=== PATIENT | female | born 1980 | race Caucasian/White ===

== ENCOUNTER → 2016-09-06 | Outpatient (CLI) | payer OTHER ==
--- NOTE | 2016-09-06 12:01 | RAD ---
Lumbar spine, 3 views, 09/06/2016: History: Chronic low back pain The lumbar vertebral heights are well-maintained. The intervertebral disc spaces are well preserved. There are mild scattered marginal spurs. The paraspinous soft tissues are unremarkable. IMPRESSION: 1. Mild marginal spurring. 2. No acute abnormality is detected.
== END | disposition home or self-care (01) ==
LOC: DXRADRC 10:47
PROVIDERS: ATTEND Family Medicine
DX: M54.5 Low back pain (principal); G89.29 Other chronic pain
CPT/HCPCS: 72100

== ENCOUNTER 2017-04-11 00:56 | Emergency (ER) | payer OTHER ==
[~2017-04-11] VITALS: Ht 157.5 cm; Wt 72.6 kg
[2017-04-11] MEDS ORDERED: PROMETHAZINE 12.5 MG in IV NORMAL SALINE 50ML 50 ML IV ONE (01:30)
[2017-04-11] MEDS ORDERED: KETOROLAC 30 MG/ML VIAL. IV ONE (01:30)
[2017-04-11] MEDS ORDERED: ONDANSETRON PF 4 MG/2 ML VIAL. IV ONE (01:30)
[2017-04-11] MEDS ORDERED: IV NORMAL SALINE 1,000ML 1,000 ML IV SCH (01:30)
[2017-04-11 01:45] LABS: BASO # 0.1 x10^3/uL (0.0-0.2); BASO % 1 % (0-3); EOS # 0.4 x10^3/uL (0.0-0.7); EOS % 4 % (0-3); HEMATOCRIT 38.7 % (36.0-47.0); HEMOGLOBIN 13.2 g/dL (12.0-15.5); LYMPH # 3.3 x10^3/uL (1.0-4.8); LYMPH % 33 % (24-48); MEAN CORPUSCULAR HEMOGLOBIN 29 pg (25-35); MEAN CORPUSCULAR HGB CONC 34 g/dL (31-37); MEAN CORPUSCULAR VOLUME 84 fL (79-100); MONO # 0.8 x10^3/uL (0.0-1.1); MONO % 8 % (0-9); NEUT # 5.7 x10^3uL (1.8-7.7); NEUT % 56 % (31-73); PLATELET COUNT 407 x10^3/uL (140-400); RED BLOOD COUNT 4.63 x10^6/uL (3.50-5.40); RED CELL DISTRIBUTION WIDTH 16.6 % (11.5-14.5); WHITE BLOOD COUNT 10.2 x10^3/uL (4.0-11.0)
[2017-04-11 01:50] LABS: BACTERIA,URINE FEW /HPF (0-FEW); BILIRUBIN,URINE NEG (NEG); CLARITY,URINE CLOUDY; COLOR,URINE YELLOW; GLUCOSE,URINE NEG (NEG); NITRITE,URINE NEG (NEG); RBC,URINE OCC /HPF (0-2); SQUAMOUS EPITHELIAL CELL,UR OCC /LPF; UROBILINOGEN,URINE 0.2 mg/dL (0.2 mg/dL); WBC,URINE OCC /HPF (0-4)
[2017-04-11] MEDS ORDERED: PROMETHAZINE 25 MG/ML VIAL IV ONE (01:50)
[2017-04-11] MEDS ORDERED: IV NORMAL SALINE 50ML 50 ML ONE (01:50)
[2017-04-11 01:51] LABS: AMORPHOUS SEDIMENT,UR PRESENT /HPF; BARBITURATES NEG (NEG); BENZODIAZEPINES POS (NEG); CANNABINOIDS NEG (NEG); COCAINE NEG (NEG); METHADONE NEG (NEG); OPIATES NEG (NEG); PHENCYCLIDINE NEG (NEG)
[2017-04-11 01:51] LABS: ALBUMIN 3.6 g/dL (3.4-5.0); ALBUMIN/GLOBULIN RATIO 0.9 (1.0-1.7); CALCIUM 8.9 mg/dL (8.5-10.1); CREATININE 0.7 mg/dL (0.6-1.0); GFR 94.7; POTASSIUM 3.6 mmol/L (3.5-5.1); TOTAL BILIRUBIN 0.1 mg/dL (0.2-1.0); TOTAL PROTEIN 7.4 g/dL (6.4-8.2)
[2017-04-11 01:54] LABS: AMPHETAMINE/METHAMPHETAMINE NEG (NEG)
--- NOTE | 2017-04-11 02:36 | RAD ---
INDICATION: [id number] Severe left sided abdomen pain with nausea and loss of appetite today. COMPARISON: None. TECHNIQUE: Axial CT images were obtained through the abdomen and pelvis without intravenous contrast. Limited assessment of solid organ structures and vasculature secondary to lack of intravenous contrast. One or more of the following individualized dose reduction techniques were utilized for this examination: 1. Automated exposure control; 2. Adjustment of the mA and/or kV according to patient size; 3. Use of iterative reconstruction technique. FINDINGS: Chest Base: Partially imaged without gross abnormality. Vessels: No abdominal aortic aneurysm. Liver/Biliary: No intrahepatic biliary duct dilation. Pancreas: No peripancreatic edema. Spleen: Normal. Kidneys/Adrenal: There couple suspected 1 mm nonobstructive right renal stones. Bladder: Minimal urine within. GI: No free air. No bowel dilation to suggest obstruction. Appendix not well seen. Degenerative changes of spine. IMPRESSION: 1. There are couple suspected tiny nonobstructive right renal stones without hydronephrosis or definite radiopaque obstructive ureter stone. Electronically signed by: Fernando Blanco MD (04/11/2017 2:33 AM) [facility]
[2017-04-11] MEDS ORDERED: oxyCODONE/APAP 10/325 1 TAB TABLET PO ONE (03:00)
[2017-04-11] MEDS ORDERED: ONDANSETRON ODT 4 MG TAB.RAPDIS PO ONE (03:00)
--- NOTE | 2017-04-11 03:00 | PHYS DOC ---
General Chief Complaint: ABDOMINAL PAIN Stated Complaint: VOMITING,ABDOMINAL PAIN Time Seen by MD: 01:29 Source: patient Exam Limitations: no limitations Problems: History of Present Illness Initial Comments Patient is a 36-year-old female who comes to the ED complaining of abdominal pain. Patient states that for the past several days she's had increasing left lower quadrant/left adnexal pain. She states that earlier today she had some chills and sweats no body aches and that she had a few episodes of nausea and vomiting. She tried to eat dinner tonight but states that everything came right back up. Her last bowel movement was this morning described as normal she's had no loose stools and no travel or bad food exposure. She states that these symptoms are similar to the symptoms she experienced a few months ago when a right-sided ovarian mass was discovered and she underwent right oophorectomy/ salpingectomy in December Dr. Anastacia stack Nesbit was her manager social media. She denies any vaginal symptoms or new urinary symptoms she has history of kidney stones in the past but states these pains are not similar. She's also had irregular menses for the past few months stating that they're coming more often and heavier however she has been evaluated by her manager social media recently. Her primary care physician is Dr. Lozano she has multiple drug allergies and despite having COPD she continues to smoke at least one pack per day. She does deny any unexplained weight loss no chest pain shortness of breath headache or focal neurologic deficit. She has had a colonoscopy in the past but is uncertain of the results. Her primary complaint is left lower quadrant/left adnexa pain described as sharp and stabbing, severe waxing and waning. Timing/Duration: 24 hours Severity: moderate Modifying Factors: worse with eating Associated Symptoms: nausea/vomiting, other Allergies: Coded Allergies: Penicillins (Verified Allergy, Unknown, 04/11/17) aspirin (Verified Allergy, Unknown, 04/11/17) iodine (Verified Allergy, Unknown, 04/11/17) morphine (Verified Allergy, Unknown, 04/11/17) phenytoin (Verified Allergy, Unknown, 04/11/17) shellfish derived (Verified Allergy, Unknown, 04/11/17) Past Medical History Medical History: other (seizure disorder, COPD) Surgical History: other ( section, appendectomy, right oophorectomy and salpingectomy December [address] Dr. Shorty stack Nesbit) Social History Smoker: cigarettes Alcohol: none Drugs: none Review of Systems Constitutional: see HPI Respiratory: denies cough, denies shortness of breath Cardiovascular: denies chest pain Gastrointestinal: see HPI Genitourinary: see HPI Musculoskeletal: denies joint swelling, denies neck pain Psychiatric/Neurological: denies headache, denies numbness, denies paresthesia , denies weakness Hematologic/Lymphatic: denies blood clots, denies easy bleeding, denies easy bruising Physical Exam General Appearance: no apparent distress Eyes: bilateral eye normal inspection, bilateral eye PERRL, bilateral eye EOMI Ear, Nose, Throat: hearing grossly normal, normal ENT inspection, normal pharynx Neck: non-tender, supple Respiratory: normal breath sounds, no respiratory distress Cardiovascular: normal peripheral pulses, regular rate, rhythm Gastrointestinal: soft (nondistended, left lower quadrant tenderness to palpation no rebound guarding or masses, bowel sounds are normal no right upper quadrant tenderness) Rectal: deferred Back: no CVA tenderness, no vertebral tenderness Extremities: non-tender, normal inspection Neurologic/Psychiatric: bait packer II-XII nml as tested, no motor/sensory deficits, alert, normal mood/affect, oriented x 3 Skin: normal color, warm/dry Orders, Labs, Meds PATIENT: JOCELYNN REESE ACCOUNT: [id number] : 1980 LOCATION: ER AGE: 36 SEX: F EXAM STATUS: REG ER ORD. PHYSICIAN: CINDY SUTTON DO REASON: LLQ/adnexa pain PROCEDURE: CT ABDOMEN PELVIS WO CONTRAST INDICATION: [id number] Severe left sided abdomen pain with nausea and loss of appetite today. COMPARISON: None. TECHNIQUE: Axial CT images were obtained through the abdomen and pelvis without intravenous contrast. Limited assessment of solid organ structures and vasculature secondary to lack of intravenous contrast. One or more of the following individualized dose reduction techniques were utilized for this examination: 1. Automated exposure control; 2. Adjustment of the mA and/or kV according to patient size; 3. Use of iterative reconstruction technique. FINDINGS: Chest Base: Partially imaged without gross abnormality. Vessels: No abdominal aortic aneurysm. Liver/Biliary: No intrahepatic biliary duct dilation. Pancreas: No peripancreatic edema. Spleen: Normal. Kidneys/Adrenal: There couple suspected 1 mm nonobstructive right renal stones. Bladder: Minimal urine within. GI: No free air. No bowel dilation to suggest obstruction. Appendix not well seen. Degenerative changes of spine. IMPRESSION: 1. There are couple suspected tiny nonobstructive right renal stones without hydronephrosis or definite radiopaque obstructive ureter stone. Electronically signed by: Maura Blanco MD (04/11/2017 2:33 AM) [id number] DICTATED AND SIGNED BY: MAURA BLANCO MD DATE: 04/11/17 0226 CC: YUAN LOZANO MD; CINDY SUTTON DO ~ Labs and urine studies are reassuring 0245: No mention was made regarding the adnexa contents are ovaries on the above CT, I did discuss the findings with Dr. Blanco the radiologist. He recommended that if there were concerns regarding the adnexa a pelvic ultrasound would be required, it has been ordered and I have been notified that the elevator technician is in route from [facility]. The patient's pain is not controlled, she has a morphine allergy but states that she was able to tolerate Percocet with her last surgery. Percocet 10 mg as well as Zofran ODT ordered. PATIENT: JOCELYNN REESE ACCOUNT: [id number] : 1980 LOCATION: ER AGE: 36 SEX: F EXAM STATUS: REG ER ORD. PHYSICIAN: CINDY SUTTON DO REASON: L adnexa pain PROCEDURE: US PELVIS W/TV INDICATION: llq pain x 1 month COMPARISON: CT from earlier same day TECHNIQUE: Grayscale and color ultrasound images uterus and adnexa. Transabdominal and transvaginal images obtained. FINDINGS: Uterus: 108 x 62 x 50 mm. Endometrial Stripe: 8 mm. Right ovary is not seen in this patient with reported history of removal. Left ovary 30 x 28 x 25 mm. Follicles are seen within the left ovary with positive vascular flow. IMPRESSION: 1. Vascular flow is seen to the left ovary with follicles seen without a worrisome mass. 2. Nonvisualization of the right ovary in this patient with reported history of removal. Electronically signed by: Maura Blanco MD (04/11/2017 4:06 AM) [facility] DICTATED AND SIGNED BY: MAURA BLANCO MD DATE: 04/11/17 0402 CC: YUAN LOZANO MD; CINDY SUTTON DO ~ [id number]: Patient has had a prolonged ED course due to radiology delay. I discussed findings extensively with the patient, no apparent emergent condition exists. I discussed signs and symptoms to monitor as well as indications for urgent return to the emergency department. I discussed prescription and over-the- counter medications, the patient is requesting an TECHNOLOGY METHODOLOGY CONSULTANT specialist contact information for second opinion. The patient's questions were answered to her satisfaction and she expressed agreement and understanding with the treatment plan. She was advised to stop smoking. Departure Time of Disposition: 04:26 Disposition: 01 HOME, SELF-CARE Diagnosis: abdominal pain Condition: STABLE Patient Instructions: Abdominal Pain (Nonspecific) Additional Instructions: As discussed no emergent medical condition is evident from tonight's extensive workup of your pain complaints. Continue current medications. [id number] Tylenol for baseline discomfort. Prescription: Zofran ODT, Percocet 5 mg quantity 10 Per your request: Dr. Howard Stone TECHNOLOGY METHODOLOGY CONSULTANT [phone] call later today to schedule next available ED follow-up appointment. Return to ED with new or changing symptoms. CINDY SUTTON DO Apr 11, 2017 03:00
--- NOTE | 2017-04-11 04:09 | RAD ---
INDICATION: llq pain x 1 month COMPARISON: CT from earlier same day TECHNIQUE: Grayscale and color ultrasound images uterus and adnexa. Transabdominal and transvaginal images obtained. FINDINGS: Uterus: 108 x 62 x 50 mm. Endometrial Stripe: 8 mm. Right ovary is not seen in this patient with reported history of removal. Left ovary 30 x 28 x 25 mm. Follicles are seen within the left ovary with positive vascular flow. IMPRESSION: 1. Vascular flow is seen to the left ovary with follicles seen without a worrisome mass. 2. Nonvisualization of the right ovary in this patient with reported history of removal. Electronically signed by: Fernando Blanco MD (04/11/2017 4:06 AM) [facility]
[2017-04-11] MEDS ORDERED: ONDANSETRON 4MG ODT 4TABLET STARTPACK. PO ONE ×2 (04:30→04:36)
[2017-04-11] MEDS ORDERED: OXYC-323 PO (04:32)
[2017-04-11] MEDS ORDERED: ONDA4TAB10 PO (04:32)
[2017-04-11 04:41] VITALS: BP 122/96
== END 2017-04-11 04:41 | disposition home or self-care (01) ==
LOC: ER 00:56
DX: R10.32 Left lower quadrant pain (principal); R11.2 Nausea with vomiting, unspecified; G40.909 Epilepsy, unspecified, not intractable, without status epilepticus; J44.9 Chronic obstructive pulmonary disease, unspecified; F17.210 Nicotine dependence, cigarettes, uncomplicated; Z88.0 Allergy status to penicillin; Z88.8 Allergy status to other drugs, medicaments and biological substances; Z88.6 Allergy status to analgesic agent; Z91.041 Radiographic dye allergy status; Z88.5 Allergy status to narcotic agent; Z91.013 Allergy to seafood
CPT/HCPCS: 36415; 74176; 76830; 76856; 80053; 80307; 81001; 83690; 85025; 96365; 96375; 99285; J1885; J2405; J2550; Q0162; G0479; J7030

== ENCOUNTER → 2017-04-15 | Outpatient (CLI) | payer OTHER ==
[2017-04-11 04:41] VITALS: BP 122/96
[~2017-04-15] MED LIST: ONDA4TAB10 PO; OXYC-323 PO
--- NOTE | 2017-04-15 10:30 | RAD ---
CT of the abdomen and pelvis without contrast 04/15/2017 Indication: Left lower quadrant pain. History of right oophorectomy. Technique: Multidetector CT imaging of the abdomen and pelvis was obtained without the administration of IV contrast. Findings: The partially visualized lung bases are unremarkable. Liver, spleen, pancreas, gallbladder, and adrenal glands are unremarkable. Small hypoattenuating lesion in the superior flow of the left kidney is unchanged from comparison study and most likely represents a small cyst. Right-sided nephrolithiasis is again noted, similar to prior study. A lobulated contour of the right kidney is similar to comparison study. There is no evidence of hydronephrosis, or ureteral stone. The bladder is predominantly decompressed. Left ovary is similar in appearance. The right ovary is nonvisualized. There is no evidence of bowel obstruction. No free fluid noted free air is seen in the abdomen or pelvis. No acute osseous changes are identified. Impression: 1. No evidence of acute intra-abdominal abnormality or acute change from prior study 4 days ago. 2. Right nephrolithiasis, unchanged PQRS Compliance Statement: One or more of the following individualized dose reduction techniques were utilized for this examination: 1. Automated exposure control 2. Adjustment of the mA and/or kV according to patient size 3. Use of iterative reconstruction technique
== END | disposition home or self-care (01) ==
LOC: CT 09:04
PROVIDERS: ATTEND Family Medicine
DX: N20.0 Calculus of kidney (principal); Z90.721 Acquired absence of ovaries, unilateral; F17.200 Nicotine dependence, unspecified, uncomplicated
CPT/HCPCS: 74176